=== PATIENT | female | born 2000 | race African-American/Black ===

== ENCOUNTER 2023-08-05 16:23 | Emergency (ER) | payer MEDICAID, OTHER ==
[~2023-08-05] VITALS: Ht 160 cm; Wt 70.5 kg
[2023-08-05 16:31] VITALS: BP 121/70; PULSE 117; RESP 18; TEMP 98.8; O2SAT 97
== END 2023-08-05 19:46 | disposition left against medical advice (07) ==
LOC: ER 16:23
DX: R07.0 Pain in throat (principal); Z53.21 Procedure and treatment not carried out due to patient leaving prior to being seen by health care provider